=== PATIENT | male | born 1935 | race Caucasian/White ===

== ENCOUNTER → 2017-04-24 | Day surgery (SDC) | payer MEDICARE, BC ==
[~2017-04-24] MED LIST: ATROPINE SULFATE 1% OPHT SOLN 5 ML BTL ONE; DEXAMETHASONE SOD PHOS 4 MG/ML VIAL ONE; EPINEPHrine HCL (1:1000) 1 MG/ML VIAL ONE; HYALURONIDASE/LIDOCAINE/BUPIVACAINE 11 ML SYR TL ONE; NEOMYCIN/POLYMYXIN/DEXAMETHASONE OPTH OINT 3.5 GM TUBE ONE; ONDANSETRON HCL 4 MG/2 ML VIAL IV PUSH ONE; PHENYLEPHRINE HCL 2.5 % OPTH SOLN 15 ML BTL ONE; PROPOFOL 200 MG/20 ML AMP IV ONE; SODIUM CHLORIDE 0.9% INJ 10 ML ONE; TETRACAINE 0.5% OPTH SOLN 15 ML BTL ONE; TROPICAMIDE 1% OPHT SOLN 15 ML BTL ONE; ceFAZolin INJ 1,000 MG VIAL ONE
--- NOTE | 2017-04-30 07:59 | TN ---
cc: RIKKI ANDINO MD DATE OF SURGERY: 04/24/2017 PREOPERATIVE DIAGNOSIS Vitreous hemorrhage, right eye. POSTOPERATIVE DIAGNOSIS Vitreous hemorrhage, right eye, with the addition of peripheral exudative choroidal vasculopathy. PROCEDURE Pars plana vitrectomy, right eye. ANESTHESIA MAC. SURGEON Jacek. COMPLICATIONS None. DETAILS OF PROCEDURE After the patient had been given retrobulbar anesthesia, he was brought to the operating room and prepared and draped in the usual sterile fashion. A wire lid speculum was placed in the patient's right eye. 23-gauge vitrectomy cannulas were then placed in the lower temporal, superotemporal, and supranasal quadrants, 3 mm posterior to the corneoscleral limbus. An infusion cannula was placed lower temporally. Core vitrectomy is then performed. There was an extensive amount of old vitreous hemorrhage present which was removed using the vitreous cutter. The source of the hemorrhage was from a peripheral exudative disease temporally. It did not appear that the subretinal hemorrhage had extended extensively into the macular area. Careful indirect ophthalmoscopy with scleral depression was then performed and no peripheral breaks were noted. The three vitrectomy cannulas were removed. Subconjunctival injections of dexamethasone and Ancef were placed. An atropine drop, Maxitrol ointment and patch and shield were then applied. The patient tolerated the procedure well. There were no complications. [facility]. Rikki Andino MD TAB/BT /6:45 PM /7:48 AM
== END | disposition home or self-care (01) ==
LOC: ESDC 12:55
PROVIDERS: ATTEND Ophthalmology Retina Specialist
DX: H43.11 Vitreous hemorrhage, right eye (principal); H35.3211 Exudative age-related macular degeneration, right eye, with active choroidal neovascularization
CPT/HCPCS: 00145; 67036; 82948; J0171; J0690; J1100; J2405; J3010